=== PATIENT | male | born 1945 | race Caucasian/White ===

== ENCOUNTER 2020-10-04 20:34 | Inpatient (IN) | payer MEDICARE ==
[2020-10-04] MEDS ORDERED: Albuterol 200 PUFF (6.7GM INHALER) ONE (20:42)
[2020-10-04] MEDS ORDERED: methylPREDNISolone Sod Succ/PF 125 MG/2 ML VIAL ONE (20:43)
[2020-10-04 20:54] LABS: Hemoglobin 12.6 g/dL (14.0-18.0); Mean Corpuscular HGB CONC 31.2 g/dL (32.0-36.0); Mean Corpuscular Hemoglobin 27.7 pg (27.0-31.0); Mean Corpuscular Volume 88.7 fL (78.0-98.0); Mean Platelet Volume 8.5 fL (7.4-10.4); Platelet Count 367 thou/uL (130-400); RBC Distribution Width 17.4 % (11.5-14.5); Red Blood Cell (RBC) Count 4.54 mill/uL (4.70-6.10); White Blood Cell (WBC) Count 20.1 thou/uL (4.8-10.8)
[2020-10-04 21:09] LABS: Actual Bicarbonate (HCO3a) 14.9 mEq/L (22-28); Analyzer IN Cardio ER; Base Excess (BEa) -11.2 mEq/L (-2.0 to +3.0); CO2 Tension 34.5 mmHg (35.0-45.0); Carboxyhemoglobin (COHb) 0.3 gm% (0.0-3.0); Hemoglobin (Hb) 12.8 g/dL (14.0-18.0); O2 Tension (PaO2), arterial 92.9 mmHg (> 70.0); Potassium - ABG Lab 4.26 mmol/L (3.70-5.30)
[2020-10-04 21:10] LABS: pH, Arterial 7.25 (7.35-7.45)
[2020-10-04 21:11] LABS: Puncture Site RRA
[2020-10-04 21:14] LABS: Band 7 % (5-11); Eosinophils 1 % (0-10); Lymphocytes 16 % (21-51); MDiff Complete? YES; Monocytes 13 % (0-10); Neutrophil 63 % (42-75)
[2020-10-04 21:14] LABS: ALT (SGPT) 59 U/L (8-55); AST (SGOT) 42 U/L (5-34); Albumin 4.6 g/dL (3.4-4.8); Alkaline Phosphatase 92 U/L (40-110); Anion Gap 23 mmol/L (10-20); BUN (Urea Nitrogen) 30 mg/dL (8.4-25.7); Bilirubin, Total 0.6 mg/dL (0.2-1.2); Calc. Creatinine Clearance 0 mL/min (70-130); Calcium 9.8 mg/dL (7.8-10.44); Carbon Dioxide 18 mmol/L (23-31); Chloride 105 mmol/L (98-107); Globulin 2.7 g/dL (2.4-3.5); Glucose 259 mg/dL (83-110); Potassium 4.5 mmol/L (3.5-5.1); Protein, Total 7.3 g/dL (5.8-8.1); Sodium 141 mmol/L (136-145)
[2020-10-04 21:15] LABS: ALV-art Gradient 576.975 mmHg (0-20)
[2020-10-04 21:26] LABS: INR-International Normal Ratio 1.2; PTT 28.5 sec (22.9-36.1); Prothrombin Time 15.5 sec (12.0-14.7)
[2020-10-04] MEDS ORDERED: cefTRIAXone\\ROCEPHIN 2 GM VIAL ONE (21:48)
[2020-10-04] MEDS ORDERED: Vancomycin 1 GM/200 ML BAG ONE (21:48)
[2020-10-04 21:50] LABS: CKMB 25.9 ng/mL (0-6.6)
[2020-10-04 22:02] LABS: SARS-CoV-2 NAA Rapid Test Not Detected (NotDetected)
[2020-10-04 22:27] LABS: Bilirubin Negative (Negative); Blood, Urine Small (Negative); Glucose, Urine (Dipstick) >=1000 mg/dL (Negative); Ketone, Urine Trace mg/dL (Negative); Leukocyte Negative (Negative); Nitrite Negative (Negative); Protein, Urine (Dipstick) 100 mg/dL (Neg-Trace); Specific Gravity, Urine 1.015 (1.005-1.030); Urobilinogen 0.2 mg/dL (Less than 2)
[2020-10-04 22:28] LABS: Clarity Clear (Clear)
[2020-10-04 22:29] LABS: Bacteria/HPF None Seen HPF (None Seen); RBC/HPF 0-3 HPF (0-3); Squamous Epithelial None Seen HPF (0-3)
[2020-10-04] MEDS ORDERED: Insulin Regular 300 UNITS/3 ML VIAL SC PRN (23:04)
[2020-10-04] MEDS ORDERED: Ondansetron ODT 4 MG TAB PO PRN (23:04)
[2020-10-04] MEDS ORDERED: Dextrose 5% in Water 1,000 ML IV PRN (23:04)
[2020-10-04] MEDS ORDERED: Dextrose 50% Abboject 50 ML SYRINGE SLOW IVP PRN (23:04)
[2020-10-04] MEDS ORDERED: Acetaminophen 325 MG TAB PO PRN (23:04)
[2020-10-04] MEDS ORDERED: Ondansetron PF 4 MG/2 ML Vial IVP PRN (23:04)
[2020-10-04] MEDS ORDERED: Furosemide 40 MG/4 ML VIAL SLOW IVP SCH (23:15)
[2020-10-05 00:35] LABS: Lactic Acid 1.7 mmol/L (0.5-2.2)
[2020-10-05 01:46] LABS: Hemoglobin 11.1 g/dL (14.0-18.0); Platelet Count 263 thou/uL (130-400)
[2020-10-05 02:06] VITALS: BMI 30.7
[2020-10-05] MEDS: Heparin 10,000 UNITS/ 10 ML VIAL SLOW IVP SCH ×2 (02:56→18:39)
[2020-10-05] MEDS: Heparin 25,000 units/D5W 500 ML IVPB SCH (03:02)
[2020-10-05 03:46] LABS: #Monocytes 0.7 thou/uL (0.11-0.59); #Neutrophils 13.2 thou/uL (1.40-6.50); %Lymphocytes 6.4 % (21.0-51.0); %Monocytes 4.6 % (0.0-10.0); Hemoglobin 11.3 g/dL (14.0-18.0); Mean Corpuscular HGB CONC 32.4 g/dL (32.0-36.0); Mean Corpuscular Hemoglobin 28.6 pg (27.0-31.0); Mean Corpuscular Volume 88.1 fL (78.0-98.0); Mean Platelet Volume 8.4 fL (7.4-10.4); Platelet Count 260 thou/uL (130-400); RBC Distribution Width 17.5 % (11.5-14.5); Red Blood Cell (RBC) Count 3.95 mill/uL (4.70-6.10); White Blood Cell (WBC) Count 14.9 thou/uL (4.8-10.8)
[2020-10-05 04:31] LABS: Anion Gap 16 mmol/L (10-20); BUN (Urea Nitrogen) 33 mg/dL (8.4-25.7); Calc. Creatinine Clearance 68 mL/min (70-130); Calcium 9.2 mg/dL (7.8-10.44); Carbon Dioxide 18 mmol/L (23-31); Chloride 108 mmol/L (98-107); Glucose 225 mg/dL (83-110); Potassium 4.6 mmol/L (3.5-5.1); Sodium 137 mmol/L (136-145)
[2020-10-05 04:56] LABS: Troponin I 0.402 ng/mL (< 0.028)
[2020-10-05] MEDS ORDERED: Enoxaparin Sodium 40 MG/0.4 ML SYRINGE SC SCH (09:00)
[2020-10-05] MEDS: Aspirin 325 MG TAB PO SCH (09:35)
[2020-10-05] MEDS ORDERED: Furosemide 20 MG TAB PO SCH (10:13)
[2020-10-05] MEDS ORDERED: Furosemide 40 MG TAB PO SCH (10:30)
[2020-10-05] MEDS: Furosemide 40 MG TAB PO SCH (14:39)
[2020-10-05] MEDS: HumaLOG 300 UNITS/3 ML VIAL SC PRN (17:19)
[2020-10-05] MEDS ORDERED: Lantus 1000 UNITS/10 ML VIAL SC SCH (21:00)
[2020-10-05] MEDS ORDERED: cefTRIAXone\\ROCEPHIN 1 GM in Sodium Chloride 0.9% 100 ML IVPB SCH (22:00)
[2020-10-06 01:24] LABS: #Basophils 0.1 thou/uL (0.0-0.2); #Lymphocytes 2.1 thou/uL (1.20-3.40); #Monocytes 0.9 thou/uL (0.11-0.59); #Neutrophils 7.7 thou/uL (1.40-6.50); %Basophils 0.8 % (0.0-1.0); %Eosinophils 0.1 % (0.0-10.0); %Lymphocytes 19.5 % (21.0-51.0); %Monocytes 8.5 % (0.0-10.0); Mean Corpuscular HGB CONC 32.7 g/dL (32.0-36.0); Mean Corpuscular Hemoglobin 28.6 pg (27.0-31.0); Mean Corpuscular Volume 87.6 fL (78.0-98.0); Mean Platelet Volume 8.4 fL (7.4-10.4); Platelet Count 267 thou/uL (130-400); RBC Distribution Width 17.6 % (11.5-14.5); Red Blood Cell (RBC) Count 3.85 mill/uL (4.70-6.10); White Blood Cell (WBC) Count 10.8 thou/uL (4.8-10.8)
[2020-10-06 01:32] LABS: Hemoglobin A1c 6.7 % (4.0-6.0)
[2020-10-06 01:51] LABS: ALT (SGPT) 84 U/L (8-55); AST (SGOT) 66 U/L (5-34); Albumin 3.5 g/dL (3.4-4.8); Alkaline Phosphatase 60 U/L (40-110); Anion Gap 15 mmol/L (10-20); BUN (Urea Nitrogen) 45 mg/dL (8.4-25.7); Bilirubin, Total 0.5 mg/dL (0.2-1.2); Calc. Creatinine Clearance 52 mL/min (70-130); Carbon Dioxide 25 mmol/L (23-31); Cardiac Risk 3.4 (Less than 4.5); Chloride 104 mmol/L (98-107); Cholesterol 132 mg/dl (< 200 Desired); Globulin 2.7 g/dL (2.4-3.5); Glucose 183 mg/dL (83-110); HDL Cholesterol 39 mg/dL (>60 Neg Risk); LDL Cholesterol, Calculated 76 mg/dL; Magnesium 1.8 mg/dL (1.6-2.6); Potassium 3.8 mmol/L (3.5-5.1); Protein, Total 6.2 g/dL (5.8-8.1); Sodium 140 mmol/L (136-145); Triglycerides 86 mg/dL (Less than 150)
[2020-10-06] MEDS: Heparin 25,000 units/D5W 500 ML IVPB SCH (01:51)
[2020-10-06 07:39] VITALS: TEMP 97.4
[2020-10-06] MEDS ORDERED: Lantus 1000 UNITS/10 ML VIAL SC SCH ×2 (09:00→09:27)
[2020-10-06] MEDS: Furosemide 40 MG TAB PO SCH ×2 (09:13→13:00)
[2020-10-06] MEDS: Aspirin 325 MG TAB PO SCH (09:13)
[2020-10-06 11:29] VITALS: BP 157/103
[2020-10-06] MEDS: HumaLOG 300 UNITS/3 ML VIAL SC PRN (13:00)
== END 2020-10-06 15:25 | disposition home or self-care (01) | DRG 871 ==
LOC: ERS 20:34 → ERHOLD 21:54 → IMCU/EMU 10-05 01:21
PROVIDERS: ADMIT Student in an Organized Health Care Education/Training Program; ATTEND Internal Medicine
DX: A41.9 Sepsis, unspecified organism (principal); J96.01 Acute respiratory failure with hypoxia; I50.33 Acute on chronic diastolic (congestive) heart failure; I21.A1 Myocardial infarction type 2; I13.0 Hypertensive heart and chronic kidney disease with heart failure and stage 1 through stage 4 chronic kidney disease, or unspecified chronic kidney disease; E87.2 Acidosis; N18.9 Chronic kidney disease, unspecified; E11.22 Type 2 diabetes mellitus with diabetic chronic kidney disease; D64.9 Anemia, unspecified; E78.00 Pure hypercholesterolemia, unspecified; K76.1 Chronic passive congestion of liver; G47.33 Obstructive sleep apnea (adult) (pediatric); I48.91 Unspecified atrial fibrillation; I25.10 Atherosclerotic heart disease of native coronary artery without angina pectoris; R53.1 Weakness; Z20.822 Contact with and (suspected) exposure to COVID-19; Z79.01 Long term (current) use of anticoagulants; Z95.1 Presence of aortocoronary bypass graft; Z90.49 Acquired absence of other specified parts of digestive tract; Z90.89 Acquired absence of other organs
CPT/HCPCS: 0240U; 36415; 36416; 36600; 71045; 80048; 80053; 80061; 81003; 81015; 82553; 82805; 83036; 83605; 83735; 83880; 84484; 85025; 85610; 85730; 87040; 93005; 93010; 93306; 94640; 94660; 94760; 96365; 96366; 96375; J0696; J1644; J1815; J1940; J2930; J3370; J3490